=== PATIENT | female | born 1985 | race Caucasian/White ===

== ENCOUNTER 2024-07-30 13:59 | Emergency (ER) | payer SELFPAY ==
[~2024-07-30] VITALS: Ht 152.4 cm; Wt 129.3 kg
[2024-07-30 14:04] VITALS: TEMP 98.3
[2024-07-30] MEDS ORDERED: GABA-532 PO (15:49)
[2024-07-30] MEDS ORDERED: IBUP-1953 PO (15:49)
[2024-07-30] MEDS ORDERED: HYDROCODONE/APAP 5/325MG TABLET ONE (15:56)
[2024-07-30] MEDS ORDERED: ONDANSETRON 4 MG TAB.RAPDIS ONE (15:58)
[2024-07-30] MEDS: ONDANSETRON 4 MG TAB.RAPDIS PO ONE (16:00)
[2024-07-30] MEDS ORDERED: HYDR-4303 PO (16:03)
[2024-07-30] MEDS ORDERED: ONDA4TAB5 PO (16:03)
[2024-07-30] MEDS ORDERED: CYCL15CA23 PO (16:03)
[2024-07-30] MEDS: ONDANSETRON HCL 4 MG/5 ML SOLUTION PO ONE (16:06)
[2024-07-30] MEDS: HYDROCODONE/APAP 5/325MG TABLET PO ONE (16:07)
[2024-07-30 16:16] VITALS: BP 149/80; O2SAT 99
== END 2024-07-30 16:16 | disposition home or self-care (01) ==
LOC: ER 14:01
DX: M25.512 Pain in left shoulder (principal)
CPT/HCPCS: 99284; 73060; 73030; Q0162